=== PATIENT | female | born 1975 | race Caucasian/White ===

== ENCOUNTER 2017-06-30 19:02 | Emergency (ER) | payer MEDICAID ==
[2014-08-13 23:17] VITALS: BMI 37.1
[~2017-06-30 19:02] MED LIST: ADIPEX-P37.5 M1 PO; DEPO-PROVER150 MG/ML IM; LISINOPRIL-HCTZ1 TA2 PO; TENORMIN25 MG PO; VALIUM10 MG PO; ZOLOFT100 MG PO
[2017-06-30 20:43] LABS: BASOPHILS 0.2 % (0-2); EOSINOPHILS 1.3 % (0-7); HEMATOCRIT 36.6 % (36.0-48.0); IMMATURE GRANULOCYTES 0.2 % (0-5); LYMPHOCYTES 16.3 % (15-50); MCH 29.6 pg (26.0-34.0); MCHC 32.8 g/dL (31.0-37.0); MCV 90.1 fL (80.0-100.0); MEAN PLATELET VOLUME 9.5 fL (7.4-10.4); MONOCYTES 5.2 % (2-11); NEUTROPHILS 76.8 % (40-80); RBC 4.06 10x6/uL (4.00-5.40); RDW 13.8 % (11.5-14.5); WBC 16.4 10x3/uL (4.8-10.8)
[2017-06-30 20:44] LABS: PLATELET COUNT 370 10x3/uL (130-400)
== END 2017-06-30 23:20 | disposition home or self-care (01) ==
LOC: D.ER 19:02
PROVIDERS: Family Medicine
DX: S16.1XXA Strain of muscle, fascia and tendon at neck level, initial encounter (principal); V49.9XXA Car occupant (driver) (passenger) injured in unspecified traffic accident, initial encounter; Y93.89 Activity, other specified; Y92.410 Unspecified street and highway as the place of occurrence of the external cause; S39.012A Strain of muscle, fascia and tendon of lower back, initial encounter; S40.021A Contusion of right upper arm, initial encounter; S70.01XA Contusion of right hip, initial encounter; S80.11XA Contusion of right lower leg, initial encounter; S93.401A Sprain of unspecified ligament of right ankle, initial encounter